=== PATIENT | male | born 1950 | race Caucasian/White ===

== ENCOUNTER 2016-10-01 14:13 | Emergency (ER) | payer MEDICARE, BC ==
[~2016-10-01] VITALS: Ht 177.8 cm; Wt 104.3 kg
--- NOTE | 2016-10-01 14:18 | NUR ---
Presents self to ed for evaluation of upper back pain, 12/11 x 2 mos worst today. Patient ambulatory. vss. will cont to monitor
[2016-10-01] MEDS ORDERED: KETOROLAC TROMETHAMINE 15 MG/ML VIAL ONE (14:53)
[2016-10-01] MEDS ORDERED: ONDANSETRON 4 MG TAB.RAPDIS ONE (14:53)
[2016-10-01] MEDS ORDERED: ONDANSETRON 4 MG TAB.RAPDIS SL ONE (15:00)
[2016-10-01] MEDS ORDERED: KETOROLAC TROMETHAMINE INJ 30 MG/ML VIAL IM ONE (15:00)
[2016-10-01] MEDS ORDERED: HYDROCODONE/APAP 10/325MG 1 EA TABLET PO ONE (15:00)
--- NOTE | 2016-10-01 15:00 | NUR ---
pt was taken to radiology department
[2016-10-01 15:55] VITALS: BP 137/78
--- NOTE | 2016-10-01 15:55 | NUR ---
Patient discharged to home in stable condition. Written and verbal after care instructions given. Patient verbalizes understanding of instruction.
== END 2016-10-01 15:56 | disposition home or self-care (01) ==
LOC: ER 14:17
DX: M54.6 Pain in thoracic spine (principal); E11.9 Type 2 diabetes mellitus without complications; Z90.49 Acquired absence of other specified parts of digestive tract
CPT/HCPCS: 71020-TC; 72128-TC; J1885; Q0162; Z7610

== ENCOUNTER 2017-03-04 11:52 | Inpatient (IN) | payer MEDICARE, BC ==
[~2017-03-04] VITALS: Ht 177.8 cm; Wt 93.4 kg
--- NOTE | 2017-03-04 12:20 | NUR ---
PT CAME IN FOR C/P SINCE AM NON-RADIATING, PRESSURE LIKE PAIN. WITH HEADACHE. PA FOR EVAL AST BS. IV ACCESS STARTED. BLOOD DRAWN FOR LABS. MEDICATED ORDERED. FAMILY AT BS. SAFETY AND COMFORT MEASURES PROVIDED. WILL MONITOR.
[2017-03-04 12:37] LABS: BASOPHILS % (AUTO) 0.2 % (0.0-2.0); EOSINOPHILS # (AUTO) 0.1 /CMM (0.0-0.7); EOSINOPHILS % (AUTO) 0.8 % (0.0-6.0); HEMATOCRIT 43 % (39-51); HEMOGLOBIN 14.3 g/dL (13.5-17.5); LYMPHOCYTES # (AUTO) 1.5 /CMM (0.8-4.8); LYMPHOCYTES % (AUTO) 20.6 % (20.0-44.0); MEAN CORPUSCULAR HEMOGLOBIN 29 PG (26.0-33.0); MEAN CORPUSCULAR HGB CONC 33 g/dl (31.0-36.0); MEAN CORPUSCULAR VOLUME 87 fL (80-96); MONOCYTES # (AUTO) 0.7 /CMM (0.1-1.30); NEUTROPHILS # (AUTO) 5.1 /CMM (1.8-8.9); NEUTROPHILS % (AUTO) 69.4 % (43.0-81.0); PLATELET COUNT (AUTO) 147 /CMM (150-450); RDW COEFFICIENT OF VARIATION 13.5 (11.5-15.0); WHITE BLOOD COUNT (AUTO) 7.3 K/uL (4.3-11.0)
[2017-03-04 12:50] LABS: CARBON DIOXIDE 26 mmol/L (21-32); CHLORIDE 106 mmol/L (98-107); CREATININE 1.1 mg/dL (0.6-1.3); GLUCOSE 184 mg/dL (74-106); SODIUM SERUM 138 mmol/L (136-145); UREA NITROGEN, BLOOD 33 mg/dL (7-18)
[2017-03-04 12:56] LABS: ALANINE AMINOTRANSFERASE 33 U/L (12-78); ALBUMIN 3.7 g/dL (3.4-5.0); ALKALINE PHOSPHATASE 45 U/L (46-116); ASPARTATE AMINOTRANSFERASE 14 U/L (15-37); BILIRUBIN,DIRECT 0.1 mg/dL (0.0-0.2); BILIRUBIN,TOTAL 0.4 mg/dL (0.2-1.0)
[2017-03-04 12:58] LABS: INR 0.93 (0.87-1.13); PROTHROMBIN TIME 9.7 SECS (9.5-12.7); TROPONIN I < 0.017 ng/mL (0.00-0.056)
[2017-03-04] MEDS ORDERED: FENO160T PO (13:50)
[2017-03-04] MEDS ORDERED: INSU3INS6 SQ (13:50)
[2017-03-04] MEDS ORDERED: TAMS0.4C34 PO (13:50)
[2017-03-04] MEDS ORDERED: IBUP-1482 PO (13:50)
[2017-03-04] MEDS ORDERED: RAMI2.5C PO (13:50)
[2017-03-04] MEDS ORDERED: SITA1TAB6 PO (13:50)
[2017-03-04] MEDS ORDERED: ASPI-991 PO (13:50)
--- NOTE | 2017-03-04 14:15 | NUR ---
REPORT GIVEN TO NAOMI ARMENDARIZ FOR TELE ROOM 120
[2017-03-04 15:35] VITALS: BP 133/75
--- NOTE | 2017-03-04 15:38 | NUR ---
NEWS DIRECTOR NOTE RECEIVED LT AC HL INTACT NO S\S INFECTION NOTED, BED IN LOWEST AND LOCKED POSITION , ADMITTED UNDER CARE DR FALL PATIENT FROM ER WITH DX CHEST PAIN ALERT ORIENTED X3 FAMILY AT BEDSIDE, CALL NEEDS ATTENDED , NO SOB NOTED , PLACED ON TELE MONITOR WITH SR , HOSPITAL ORIENTATION DONE , BODY CHECK DONE , PLAN OF CARE DISCUSSED WITH PATIENT , CALL LIGHT WITHIN REACH , NO S\O CHEST PAIN OR DISCOMFORT AT THIS TIME , WILL CONT TO MONITOR CLOSELY
[2017-03-04 16:00] VITALS: BP 133/75
--- NOTE | 2017-03-04 16:41 | NUR ---
GOVERNMENT SALES MANAGER NOTE 2D ECHO DONE ORDERED, KEEP CLEAN F DRY, NOT IN ACUTE DISTRESS
--- NOTE | 2017-03-04 18:24 | NUR ---
GAUGE CHECKER NOTE HAVING DINNER ,REFUSED TO A COVERAGE WITH INSULIN, BLOOD SUGAR 169 MG\ DL, WILL CONT TO MONITOR CLOSELY ,
--- NOTE | 2017-03-04 19:58 | NUR ---
CABIN CREW INITIAL NOTE PT RECEIVED IN NO ACUTE DISTRESS. A/O X4 ABLE TO MAKE NEEDS KNOWN. ON TELE WITH SR 78. PT HAS LAC 20G THAT IS CLEAN DRY AND INTACT. COMFORT AND SAFETY MEASURES TO BE ENSURED DURING THE SHIFT. WILL CONTINUE TO MONITOR FOR CHANGES.
[2017-03-04 20:00] VITALS: BP 141/74
[2017-03-05] VITALS: BP 141/72
[2017-03-05 04:00] VITALS: BP 143/73
[2017-03-05 06:22] LABS: BASOPHILS % (AUTO) 0.2 % (0.0-2.0); EOSINOPHILS % (AUTO) 1.7 % (0.0-6.0); HEMATOCRIT 42 % (39-51); HEMOGLOBIN 14.2 g/dL (13.5-17.5); LYMPHOCYTES % (AUTO) 35.6 % (20.0-44.0); MEAN CORPUSCULAR HEMOGLOBIN 30 PG (26.0-33.0); MEAN CORPUSCULAR HGB CONC 34 g/dl (31.0-36.0); MEAN CORPUSCULAR VOLUME 88 fL (80-96); MONOCYTES % (AUTO) 9.5 % (2.0-12.0); PLATELET COUNT (AUTO) 150 /CMM (150-450); RDW COEFFICIENT OF VARIATION 13.3 (11.5-15.0); RED BLOOD CELL COUNT(AUTO) 4.77 MIL/uL (4.5-6.0); WHITE BLOOD COUNT (AUTO) 6.1 K/uL (4.3-11.0)
[2017-03-05 06:23] LABS: EOSINOPHILS # (AUTO) 0.1 /CMM (0.0-0.7); LYMPHOCYTES # (AUTO) 2.2 /CMM (0.8-4.8); MONOCYTES # (AUTO) 0.6 /CMM (0.1-1.30); NEUTROPHILS # (AUTO) 3.2 /CMM (1.8-8.9)
[2017-03-05 06:33] LABS: CALCIUM, SERUM 8.6 mg/dL (8.5-10.1); PHOSPHORUS 2.9 mg/dL (2.5-4.9); POTASSIUM 3.8 mmol/L (3.5-5.1)
--- NOTE | 2017-03-05 07:40 | NUR ---
RN NOTES RECEIVED PT RESTING BED, NO ACUTE DISTRESS. A/O X4 ABLE TO MAKE NEEDS KNOWN. ON TELE SR . PT HAS LAC 20G FLUSHED WITH NS PATENT. KEPT COMFORTABLE, DENIES PAIN AT THIS TIME, DENIES CHEST PAIN. SAFETY MAINTAINED CALL LIGHT WITHIN REACH
[2017-03-05 08:00] VITALS: BP 118/72
[2017-03-05 12:00] VITALS: BP 122/70
[2017-03-05 16:00] VITALS: BP 134/72
[2017-03-05] MEDS ORDERED: ATOR40TA PO (18:07)
--- NOTE | 2017-03-05 18:36 | NUR ---
RN NOTES PT DISCHARGED FROM UNIT IN STABLE CONDITION. PT CLEARED BY DR KRISHNAMURTHY FOR DC AND PRESCRIPTIONS GIVEN. ALL DUE MEDS GIVEN. EXITCARE PROVIDED. DISCHARGE INSTRUCTIONS AND PEPRWORK GIVEN. ID BAND REMOVED, IV SITE REMOVED COVERED WITH CLEAN DRY DRESSING. ALL BELONGINGS SENT WITH THE PT
== END 2017-03-05 18:31 | disposition home or self-care (01) | DRG 203 ==
LOC: ER 11:54 → TELE1 13:59
PROVIDERS: ADMIT Internal Medicine; ATTEND Internal Medicine
DX: M94.0 Chondrocostal junction syndrome [Tietze] (principal); I10 Essential (primary) hypertension; E11.9 Type 2 diabetes mellitus without complications; E66.9 Obesity, unspecified; E78.5 Hyperlipidemia, unspecified; F41.9 Anxiety disorder, unspecified; N40.0 Benign prostatic hyperplasia without lower urinary tract symptoms; Z79.4 Long term (current) use of insulin; Z87.891 Personal history of nicotine dependence; Z68.29 Body mass index [BMI] 29.0-29.9, adult; R00.0 Tachycardia, unspecified
CPT/HCPCS: 36415; 71010-TC; 80048-TC; 80061-TC; 80076-TC; 82962-TC; 83735-TC; 84100-TC; 84484-TC; 85025-TC; 85730-TC; 87081-TC; 93307-TC; A4606; J1650; J1815; J2310; Z7610